=== PATIENT | male | born 1955 | race Caucasian/White ===

== ENCOUNTER 2019-01-28 06:20 | Day surgery (SDC) | payer OTHER ==
[~2019-01-28 06:20] MED LIST: ACETAMINOPHEN 500 MG TAB PO
[2019-01-28] MEDS ORDERED: ROPIVACAINE 0.5 % 30 ML VIAL (06:53)
[2019-01-28] MEDS ORDERED: morphine SULFATE/PF (10 MG/10 ML) INJ (06:54)
[2019-01-28] MEDS ORDERED: ROCURONIUM 50 MG INJ (07:00)
[2019-01-28] MEDS ORDERED: EPHEDrine SULFATE 50 MG/5 ML SYG (07:00)
[2019-01-28] MEDS ORDERED: SUCCINYLCHOLINE CHLORIDE 100 MG/5 ML SYG IV (07:00)
[2019-01-28] MEDS ORDERED: PHENYLephrine (100 MCG/ML) 5ML SYG (07:00)
[2019-01-28] MEDS ORDERED: DESFLURANE 15 MIN (07:00)
[2019-01-28] MEDS ORDERED: ONDANSETRON 4 MG INJ (07:23)
[2019-01-28] MEDS ORDERED: CEFAZOLIN 1 GM INJ (07:23)
[2019-01-28] MEDS ORDERED: LIDOCAINE 2% (SDV) 5 ML INJ (07:23)
[2019-01-28] MEDS ORDERED: PROPOFOL 40 ML (07:23)
[2019-01-28] MEDS ORDERED: MIDAZOLAM 1 MG/ML 2 ML INJ (07:23)
[2019-01-28] MEDS ORDERED: FENTAnyl 50 MCG/ML VIAL (07:23)
[2019-01-28] MEDS ORDERED: FAMOTIDINE 20 MG INJ (07:24)
[2019-01-28] MEDS ORDERED: HYDROmorphONE 1 MG/5 ML IV SYRINGE IV (07:30)
[2019-01-28] MEDS ORDERED: OXYCODONE/ACETAMINOPHEN (5/325) TAB PO (07:30)
[2019-01-28] MEDS ORDERED: FENTAnyl 50 MCG/ML VIAL IV (07:30)
[2019-01-28] MEDS ORDERED: ALBUTEROL 0.083% (NEB) 2.5 MG/3 ML AMP HHN (07:30)
[2019-01-28] MEDS ORDERED: LABETALOL HCL 20MG INJ IV (07:30)
[2019-01-28] MEDS ORDERED: DIPHENHYDRAMINE 50 MG INJ IV (07:30)
[2019-01-28] MEDS ORDERED: morphine (1 MG/ML) 10ML SYRINGE IV ×2 (07:30)
[2019-01-28] MEDS ORDERED: MEPERIDINE 25 MG INJ IV (07:30)
[2019-01-28] MEDS: POLYMYXIN/BACITRACIN 1L IRRIG (08:50)
[2019-01-28] MEDS ORDERED: SUGAMMADEX SODIUM 200 MG/2 ML VIAL IV (09:16)
[2019-01-28] MEDS: FENTAnyl 50 MCG/ML VIAL IV ×2 (09:52→10:04)
[2019-01-28] MEDS: ONDANSETRON 4 MG INJ IV (09:53)
[2019-01-28] MEDS: OXYCODONE/ACETAMINOPHEN (5/325) TAB PO (09:54)
[2019-01-28] MEDS: HYDROmorphONE 1 MG/5 ML IV SYRINGE IV ×3 (10:15→10:39)
[2019-01-28] MEDS: morphine 10 MG INJ IV (11:45)
== END 2019-01-28 12:05 | disposition home or self-care (01) ==
LOC: SDS 06:20
DX: S52.501P Unspecified fracture of the lower end of right radius, subsequent encounter for closed fracture with malunion (principal); X58.XXXD Exposure to other specified factors, subsequent encounter; S52.611K Displaced fracture of right ulna styloid process, subsequent encounter for closed fracture with nonunion; I10 Essential (primary) hypertension; E78.5 Hyperlipidemia, unspecified
CPT/HCPCS: 25240; 73090-RT